=== PATIENT | female | born 1995 | race Caucasian/White ===

== ENCOUNTER 2019-11-06 02:00 | Emergency (ER) | payer OTHER, SELFPAY ==
[2019-11-06 02:00] VITALS: BP 116/79; PULSE 80; RESP 18; TEMP 36.9; O2SAT 99
--- NOTE | 2019-11-06 02:24 | DI.RAD.S_ITS ---
PROCEDURE: XR CHEST 2V INDICATIONS: cough, been in [place] TECHNIQUE: 2 views of the chest were acquired. COMPARISON: None. FINDINGS: Surgical changes and devices: None. Lungs and pleura: Lungs are clear. No pleural effusions or pneumothorax. Mediastinum: Mediastinal contours are normal. Heart size is normal. Bones and chest wall: No suspicious bony abnormalities. Soft tissues appear unremarkable. IMPRESSION: No acute cardiopulmonary pathology. Dictated by: Kody Sylvester M.D. on 11/06/2019 at 8:39 Approved by: Kody Sylvester M.D. on 11/06/2019 at 8:40
[2019-11-06 03:11] VITALS: BP 116/79; PULSE 87; O2SAT 99
--- NOTE | 2019-11-06 03:14 | ED_ITS ---
HPI - URI/Sore Throat General Chief Complaint: Upper Respiratory Symptoms Stated Complaint: wants check for covid-19 Time Seen by Provider: 11/06/19 02:24 Source: patient Mode of arrival: Ambulatory Limitations: no limitations History of Present Illness HPI Narrative: This is a 24-year-old female who comes emergency department requesting checking for coronavirus 19. Patient states that she was recently on a dive trip to [place] and returned on the plane today. She had an upper respiratory infection that is been going on for about 3 weeks. She has had some mild congestion with a mild cough that is been occasionally productive with yellow sputum. And states that her throat has been mildly irritated. Patient states that she has been a little bit more short of breath. She has used her albuterol inhaler twice. She has known asthma. She has not been using it regularly. Has not required at today. She has not had any fevers. She states that she does not have any chest pain. She is not currently short of breath. She has not had any nausea, vomiting no other GI or urinary symptoms. No rashes, skin changes or swelling. She states she was concerned so she came to the ER. Review of Systems Review of Systems ROS Unobtainable: All systems reviewed & are unremarkable except as noted in HPI and below Patient History Medical History (Updated 11/06/19 @ 03:36 by Manisha Schwarz DO) Asthma (Acute) Social History Smoking Status: Never smoker Smoking Status: Never smoker alcohol intake frequency: a few times a month Substance Use Type: does not use Exam Narrative Exam Narrative: GEN: well nourished, well appearing female, alert and oriented x 3, patient appears to be in mild distress. HEENT: Atraumatic, pupils are equal round reactive to light, extraocular mov ements are intact. HEART: Regular rate and rhythm without murmur, clicks, rubs. LUNGS:Lungs clear to auscultation, no wheezes, rales, crackles, chest moves symmetrically, no tachypnea, no accessory muscle use. Speaks in full sentences. Patient has mild dry cough. ABD:bowel sounds normal, soft, non-tender, no guarding, rebound, rigidity, no masses noted, no hepatosplenomegaly :No CVA tenderness. MSCL: Non-tender, no muscle atrophy, muscles strength 5/5 upper and lower extremities, full range of motion, normal gait NEURO:CN 2-12 intact, sensation normal SKIN: No rashes, erythema or skin changes. Initial Vital Signs Initial Vital Signs: Vital Signs Temperature 98.4 F 11/06/19 02:00 Pulse Rate 80 11/06/19 02:00 Respiratory Rate 18 11/06/19 02:00 Blood Pressure 116/79 11/06/19 02:00 Pulse Oximetry 99 11/06/19 02:00 Course Orders Ordered: ED Orders 11/06/19 02:24 XR chest 2V Stat 11/06/19 02:25 Influenza A & B (PCR) Stat Vital Signs Vital signs: Vital Signs - 8 hr 11/06/19 02:00 11/06/19 03:11 Temperature 98.4 F Pulse Rate 80 87 Respiratory Rate 18 Blood Pressure 116/79 Blood Pressure [Left Arm] 116/79 Pulse Oximetry 99 99 MDM - URI/Sore Throat Imaging Data Chest x-ray: Attestation: I personally reviewed and interpreted this imaging study as follows: My Impression: no infiltrate, no cardiomegaly, normal mediastinum, no pneumothorax. Nap. [facility] Narrative Medical decision making narrative: Discussed with patient chest x-ray is negative, vital signs are normal and she has been afebrile. She does not currently meet criteria for testing. And her travel to [place] is not currently a level 3 country listed on the affected areas with widespread persisting community transmission as per the CDC web site. Discussed with patient there is potential she could have jeffers virus, that she should continue to self isolate and given optional resources for follow-up has testing guidelines are changing over time. Discharge Plan Departure Patient Disposition: Home Clinical Impression: Upper respiratory infection Qualifiers: URI type: unspecified URI Qualified Code(s): J06.9 - Acute upper respiratory infection, unspecified Discharge Date/Time: 11/06/19 03:40 Activity Restrictions/Additional Instructions: If you have additional concerns you can contact the hospital respiratory hotline once it is open or the department of Health has a hotline number available for questions regarding jeffers virus and testing. Use your inhaler as needed I would recommend self isolation for the next 7-10 days. Follow up for recheck if you are having fevers, increasing shortness of breath, passing out, new chest pain, swelling in your extremities or other new or concerning symptoms. Referrals: Hilary Bragg ARNP [Primary Care Provider] -
== END 2019-11-06 03:40 | disposition home or self-care (01) ==
PROVIDERS: Emergency Provider Emergency Medicine; PCP Nurse Practitioner Family
DX: J06.9 Acute upper respiratory infection, unspecified (principal); J45.909 Unspecified asthma, uncomplicated
CPT/HCPCS: 71046; 99283